=== PATIENT | female | born 1990 | race Caucasian/White ===

== ENCOUNTER 2018-01-10 09:51 | Inpatient (IN) | payer BC ==
[2018-01-10] MEDS ORDERED: Lidocaine 1% (PF) 30 ML VIAL SC PRN (21:28)
[2018-01-10] MEDS ORDERED: HYDROcodone/Acetaminophen 5/325 mg Tablet PO PRN ×2 (21:28)
[2018-01-10] MEDS ORDERED: Acetaminophen 500 MG TAB PO PRN (21:28)
[2018-01-10] MEDS ORDERED: Zolpidem Tartrate 5 MG TAB PO PRN (21:28)
[2018-01-10] MEDS ORDERED: Misoprostol 200 MCG TAB PR PRN (21:28)
[2018-01-10] MEDS ORDERED: Ondansetron PF 4 MG/2 ML Vial IVP PRN (21:28)
[2018-01-10] MEDS ORDERED: Methylergonovine 0.2 MG/ML VIAL IM PRN (21:28)
[2018-01-10] MEDS ORDERED: NS / Oxytocin 40 units/1000ml 1,000 ML IV PRN (21:28)
[2018-01-10] MEDS ORDERED: Promethazine HCl 25 MG/ML VIAL IM PRN (21:28)
[2018-01-10] MEDS ORDERED: Ibuprofen 800 MG TAB PO PRN (21:28)
[2018-01-10] MEDS ORDERED: NS w/ Oxytocin 10 units 500 ML IV SCH (21:30)
[2018-01-10] MEDS: Lactated Ringer's 1,000 ML IV SCH (21:35)
[2018-01-10 22:02] LABS: Hemoglobin 12.8 g/dL (12.0-16.0); Mean Corpuscular Hemoglobin 30.1 pg (27.0-31.0); Mean Corpuscular Volume 88.4 fL (78.0-98.0); Mean Platelet Volume 7.8 fL (7.4-10.4); Platelet Count 285 thou/uL (130-400); RBC Distribution Width 13.1 % (11.5-14.5); Red Blood Cell (RBC) Count 4.26 mill/uL (4.20-5.40); White Blood Cell (WBC) Count 10.2 thou/uL (4.8-10.8)
[2018-01-10 22:08] VITALS: BMI 27.9
[2018-01-10] MEDS: Misoprostol 100 MCG TAB VAG SCH (22:33)
[2018-01-10 22:39] LABS: Syphilis Antibody Nonreactive (Nonreactive); Syphilis Antibody Index 0.06 S/CO (<1.00 Non-Reactive)
[2018-01-10 23:27] LABS: HBSAg Index 0.12 S/CO (0-0.99); Hep B Surf Ag Non-Reactive S/CO (NonReactive)
[2018-01-11] MEDS: Misoprostol 100 MCG TAB VAG SCH ×6 (01:40→23:56)
[2018-01-11] MEDS: Lactated Ringer's 1,000 ML IV SCH ×3 (04:03→16:55)
[2018-01-11] MEDS: Butorphanol Tartrate 1 MG/ML VIAL SLOW IVP PRN ×2 (08:22→10:45)
[2018-01-11] MEDS ORDERED: Ondansetron PF 4 MG/2 ML Vial IVP PRN ×2 (11:46→23:01)
[2018-01-11] MEDS ORDERED: diphenhydrAMINE 50 MG/ML VIAL IVP PRN (11:46)
[2018-01-11] MEDS ORDERED: Lactated Ringer's 500 ML IV PRN (11:46)
[2018-01-11] MEDS ORDERED: ePHEDrine/0.9% NaCl/PF SYRINGE 50 mg/10 ml SLOW IVP PRN (11:46)
[2018-01-11] MEDS ORDERED: Acetaminophen 325 MG TAB PO PRN (11:46)
[2018-01-11] MEDS ORDERED: Promethazine HCl 25 MG/ML VIAL IM PRN ×2 (11:46→23:01)
[2018-01-11] MEDS ORDERED: Naloxone HCl 0.4 mg/ml Vial IVP PRN ×2 (11:46)
[2018-01-11] MEDS ORDERED: Eucerin (Mineral Oil/Petrolatum,White) 30 gm Jar TOP PRN (11:46)
[2018-01-11] MEDS ORDERED: Fentanyl 4 mcg/Bup 0.1% Cadd 100 ML ONE ×2 (11:47→18:39)
[2018-01-11] MEDS ORDERED: Fentanyl 4 mcg/Bupivacaine 0.1% Cassette 100 ML EPIDURAL SCH (12:00)
[2018-01-11] MEDS ORDERED: Communication Order-Pharmacy FS SCH (12:00)
[2018-01-11] MEDS: NS w/ Oxytocin 10 units 500 ML IV SCH ×2 (12:34→23:56)
[2018-01-11] MEDS ORDERED: Fentanyl 100 MCG/2 ML VIAL ONE (18:56)
[2018-01-11] MEDS ORDERED: NS / Oxytocin 40 units/1000ml 1,000 ML ONE (18:59)
[2018-01-11] MEDS ORDERED: Lidocaine 1% (PF) 30 ML VIAL ONE (18:59)
--- NOTE | 2018-01-11 20:35 | PDOC.LDHP ---
Labor and Delivery H&P Chief complaint: scheduled induction HPI: 27 y/o , at 39 and 0/7 weeks presents for term medical induction for borderline IUGR. MFM team has been following. Current gestational age (weeks): 39 Due date: 01/18/18 Grav: 1 Para: 0 Current complications: IUGR Abnormal US findings: No Current medications: pre-juan pablo vitamins Allergies/Adverse Reactions: Allergies Allergy/AdvReac Type Severity Reaction Status Date / Time codeine Allergy Mild Nausea Verified 01/10/18 22:42 - Physical Exam Vital signs reviewed and normal: yes General: NAD Heart: RRR Lungs: nonlabored breathing Abdomen: NTTP Extremeties: no edema FHT: category 1 - Assessment L&D Assessment: medically indicated induction - Plan Plan: admit to L&D, cervical ripening
[2018-01-11] MEDS ORDERED: Preparation H Ointment 28 GM TUBE PR PRN (23:01)
[2018-01-11] MEDS ORDERED: Milk Of Magnesia 30 ML UDCUP PO PRN (23:01)
[2018-01-11] MEDS ORDERED: Adacel (T-DAP) 0.5 ML VIAL IM ONE (23:01)
[2018-01-11] MEDS ORDERED: Zolpidem Tartrate 5 MG TAB PO PRN (23:01)
[2018-01-11] MEDS ORDERED: Lanolin Ointment 7 GM TUBE TOP PRN (23:01)
[2018-01-11] MEDS ORDERED: Bisacodyl 10 MG SUPP PR PRN (23:01)
[2018-01-11] MEDS ORDERED: diphenhydrAMINE 25 MG CAP PO PRN (23:01)
[2018-01-11] MEDS ORDERED: Measles/Mumps/Rubella 10 MCG/0.5 ML VIAL SC ONE (23:01)
[2018-01-11] MEDS ORDERED: NS / Oxytocin 40 units/1000ml 1,000 ML IV SCH (23:01)
[2018-01-12] MEDS: Ibuprofen 800 MG TAB PO SCH ×3 (06:07→21:42)
[2018-01-12 06:11] LABS: Hemoglobin 12.3 g/dL (12.0-16.0); Mean Corpuscular HGB CONC 33.3 g/dL (32.0-36.0); Mean Corpuscular Hemoglobin 29.7 pg (27.0-31.0); Mean Corpuscular Volume 89.2 fL (78.0-98.0); Mean Platelet Volume 7.8 fL (7.4-10.4); Platelet Count 240 thou/uL (130-400); RBC Distribution Width 13.3 % (11.5-14.5); Red Blood Cell (RBC) Count 4.13 mill/uL (4.20-5.40); White Blood Cell (WBC) Count 15.2 thou/uL (4.8-10.8)
[2018-01-12] MEDS: Ferrous Sulfate 325 MG TAB PO SCH ×2 (08:42→18:43)
[2018-01-12] MEDS: Docusate Calcium (SURFAK) 240 MG CAP PO SCH ×2 (08:43→21:42)
[2018-01-13] MEDS: Ibuprofen 800 MG TAB PO SCH ×3 (00:44→16:48)
[2018-01-13] MEDS: Ferrous Sulfate 325 MG TAB PO SCH ×2 (07:36→16:47)
[2018-01-13 08:07] VITALS: BP 114/77; TEMP 98
[2018-01-13] MEDS: Docusate Calcium (SURFAK) 240 MG CAP PO SCH (09:13)
--- NOTE | 2018-01-14 03:55 | OP ---
DATE OF PROCEDURE: 01/11/2018 PREOPERATIVE DIAGNOSES: Intrauterine at 39 weeks and 0 days with a scheduled induction for intrauterine growth restriction. POSTOPERATIVE DIAGNOSES: Intrauterine at 39 weeks and 0 days with a scheduled induction fo r intrauterine growth restriction. PROCEDURE: Spontaneous vaginal delivery over intact perineum. FINDINGS: Viable male infant weighing 2659 grams or 5 pounds 14 ounces. Quantitative blood loss is estimated at 13 mL. COMPLICATIONS: None. DETAILS OF THE PROCEDURE: The patient presented to [facility] where she was a dmitted to the Labor and Delivery service. The patient underwent a normal and uneventful labor with normal cervical dilatation until she was found to be completely dilated. She was then allowed to pus h and was able to bring the baby down and delivered the baby in a vertex presentation without difficu lties. Once the head delivered in occiput anterior position, the shoulders followed spontaneously al zhane with the rest of the baby's body. Once out the baby's mouth and nose were bulb suctioned. The c ord was clamped and cut and baby was handed to waiting attendants. Cord blood was collected. Gentle Fundal massage was performed and the placenta delivered intact without problems. Hemostasis was ass ured. Quantitative blood loss was calculated. Inspection of the cervix, vaginal vault, and perineum did not reveal any lacerations needing suturing. Once again, hemostasis was within normal limits an d the patient was allowed to recover in the labor and delivery room. Baby went to nursery.
== END 2018-01-13 18:55 | disposition home or self-care (01) | DRG 807 ==
LOC: L&D 20:57 → 3SW 01-11 22:31
PROVIDERS: ADMIT Obstetrics & Gynecology; ATTEND Obstetrics & Gynecology
PROC: 10E0XZZ Delivery of Products of Conception, External Approach (ICD-10-PCS; principal; 2018-01-11)
PROC: 3E033VJ Introduction of Other Hormone into Peripheral Vein, Percutaneous Approach (ICD-10-PCS; 2018-01-11)
DX: O36.5990 Maternal care for other known or suspected poor fetal growth, unspecified trimester, not applicable or unspecified (principal); Z37.0 Single live birth; Z3A.39 39 weeks gestation of pregnancy
CPT/HCPCS: 36415; 51702; 85027; 86780; 86850; 86900; 86901; 87340; J0595; J2001; J3010